=== PATIENT | female | born 1980 | race Caucasian/White ===

== ENCOUNTER → 2016-11-21 | Outpatient (CLI) | payer OTHER ==
[~2016-11-21] MED LIST: ACET-1311 PO; FERR1TAB23; FLUO10CA48 PO; PRENTAB26 PO
== END | disposition home or self-care (01) ==
LOC: C.PAPS 14:56
PROVIDERS: ATTEND Obstetrics & Gynecology
DX: Z12.4 Encounter for screening for malignant neoplasm of cervix (principal)

== ENCOUNTER → 2017-07-14 | Outpatient (CLI) | payer OTHER ==
--- NOTE | 2017-07-14 10:52 | DIAGNOSTIC IMAGING REPORT ---
THYROID ULTRASOUND HISTORY: THYROID NODULE COMPARISON: None. FINDINGS: Right lobe: 5.8 x 2.0 x 2.1 cm. There is a 4 mm hypoechoic nodule within the interpolar region. Left lobe: 5.4 x 2.8 x 2.0 cm. There are 2 subcentimeter hypoechoic nodules within the lower pole with the largest measuring 4 mm. Isthmus: 5 mm in thickness. No nodules. IMPRESSION: A few subcentimeter thyroid nodules as described above which do not meet sonographic criteria for biopsy. Electronically signed by: Yakov Dockery M.D. 07/14/2017 10:51 AM Dictated Date/Time: 07/14/2017 10:49 AM
== END | disposition home or self-care (01) ==
LOC: C.ULTR 10:05
PROVIDERS: ATTEND Family Medicine
DX: E04.2 Nontoxic multinodular goiter (principal)